=== PATIENT | male | born 1970 | race Caucasian/White ===

== ENCOUNTER 2017-11-23 09:03 | Outpatient (REF) | payer MEDICAID, SELFPAY ==
[2017-11-23 20:42] LABS: ALT 47 U/L (12-78); AST 21 U/L (15-37); Albumin 3.8 g/dL (3.4-5.0); Alkaline Phosphatase 73 U/L (46-116); Bilirubin, Total 0.3 mg/dL (0.2-1.0); Cholesterol 225 mg/dL (50-200); HDL Cholesterol 44 mg/dL (40-60); LDL CHOLESTEROL 165 mg/dL (<100); Total Protein 6.7 g/dL (6.4-8.2); Triglyceride 117 mg/dL (30-150)
[2017-11-23 21:14] LABS: Bilirubin, Direct 0.08 mg/dL (0.00-0.20)
== END 2017-11-23 09:23 ==
LOC: NCHCN 09:03
PROVIDERS: PCP Nurse Practitioner Family; Visit Provider Physician Assistant Medical
DX: E78.5 Hyperlipidemia, unspecified (principal)
CPT/HCPCS: 80061; 80076; 83721

== ENCOUNTER 2017-12-12 18:06 | Outpatient (REF) | payer MEDICAID, SELFPAY ==
[2017-12-12 20:34] LABS: ALT 65 U/L (12-78); AST 29 U/L (15-37); Albumin 3.7 g/dL (3.4-5.0); Alkaline Phosphatase 75 U/L (46-116); Anion Gap 10.6 mmol/L (3-11); BUN 11 mg/dL (7-18); Bilirubin, Total 0.3 mg/dL (0.2-1.0); CO2 25.4 mmol/L (21.0-32.0); Chloride 103 mmol/L (98-107); Creatine Kinase 147 U/L (39-308); Glucose 95 mg/dL (70-100); Potassium 4.4 mmol/L (3.5-5.1); Sodium 139 mmol/L (136-145); Total Protein 6.5 g/dL (6.4-8.2)
== END 2017-12-12 18:26 ==
LOC: NCHCN 18:06
PROVIDERS: PCP Nurse Practitioner Family; Visit Provider Specialist/Technologist Athletic Trainer
DX: Z02.89 Encounter for other administrative examinations (principal)
CPT/HCPCS: 80053; 82550

== ENCOUNTER 2018-10-25 08:11 | Emergency (ER) | payer SELFPAY ==
[2018-10-25 08:18] VITALS: BP 140/100; PULSE 95; RESP 16; TEMP 36.7; O2SAT 96
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
[2018-10-25] MEDS: Acetaminophen 500 MG TAB 1000 MG PO (08:29)
[2018-10-25 10:27] VITALS: BP 138/99; PULSE 85; RESP 16; TEMP 36.7; O2SAT 96
[2018-10-25] MEDS: Tetanus & Diphtheria Tox,ADULT 0.5 ML VIAL IM (10:28)
== END 2018-10-25 10:27 | disposition home or self-care (01) ==
PROVIDERS: Emergency Provider Nurse Practitioner Family; PCP Physician Assistant Medical
DX: S09.90XA Unspecified injury of head, initial encounter (principal); S01.81XA Laceration without foreign body of other part of head, initial encounter; S00.03XA Contusion of scalp, initial encounter; Y08.09XA Assault by strike by other specified type of sport equipment, initial encounter
CPT/HCPCS: 12013; 90471; 99284; 70450; 99281

== ENCOUNTER 2018-11-01 11:14 | Emergency (ER) | payer SELFPAY ==
[2018-11-01 11:21] VITALS: BP 153/90; PULSE 62; RESP 16; TEMP 36.7; O2SAT 96
--- NOTE | 2018-11-01 11:33 | ED.GENADUL_ITS ---
Discharge Plan Disposition Patient Disposition: HOME Condition: Stable Discharge Details Chief Complaint: SutureRem Clinical Impression: Encounter for removal of sutures Primary Care Provider: Javier Nath ED Provider: Fortino Feliz Home Meds and New Rx's Prescriptions: Continued pantoprazole [Protonix] 40 mg Tablet,Delayed Release (Dr/Ec) 20 mg PO DAILY RF: 0 Discharge Instructions Instructions: Stitches Removal (ED) Medical Decision Making pt here for suture removal after having sutures placed on forehead. Denies discharge or pain. Has very mild erythema surrounding the wound that appears to be healing and not infectious, no evidence of cellulitis and wound appears well healed. Will have nursing remove and return precautions given Differential Diagnosis suture removal, abrasion HPI General Mode of arrival: ambulatory . Date/Time Provider Initiated Documentation: 11/01/18 11:32 . Limitations to Documentation: no limitations . Information obtained by: patient . History of Present Illness 48 year old M presents to the emergency department with the chief complaint of forehead suture removal, described as mild, No relieving factors improve symptom(s), No exacerbating factors reported . Patient notes no other symptoms.. Related Data Home Medications Medication Instructions Recorded Confirmed pantoprazole [Protonix] 20 mg PO DAILY 10/25/18 10/25/18 Allergies Allergy/AdvReac Type Severity Reaction Status Date / Time No Known Allergies Allergy Unverified 10/25/18 08:24 General Stated Complaint: SutureRem KODY: 5 Review of Systems Review of Systems All systems reviewed & are unremarkable except as noted in HPI and below Constitutional Denies chills, Denies fever(s) and Denies weakness Cardiovascular Denies chest pain and Denies dyspnea Respiratory Denies cough and Denies dyspnea Gastrointestinal Denies abdominal pain, Denies nausea and Denies vomiting Genitourinary Denies dysuria Musculoskeletal Denies joint swelling Integumentary/Breasts Denies rash Neurologic Denies weakness [facility] Medical History (Updated 10/25/18 @ 08:27 by Tha Castellanos NP) GERD (gastroesophageal reflux disease) (Chronic) Social History Smoking/Tobacco Use Status: Never Substance use type: does not use Do you feel safe at home: Yes Do you feel safe in your relationship?: Yes Exam Const General: no acute distress Orientation: alert HENND Head: no palpable skull fracture Ears: external ears normal General nose exam: external nose normal Mouth: moist mucous membranes Eyes General: appearance normal, both eyes and all related structures Neck Neck: normal visual inspection Resp Effort & Inspection: normal respiratory effort and able to speak in complete sentences Cardio Rate: regular rate Skin General skin exam: no rashes or lesions noted Neuro General: alert and oriented x3 Extrem General: normal to inspection Psych Mental Status: mental status grossly normal Course Vital Signs Temperature 36.7 C 11/01/18 11:21 Pulse 62 11/01/18 11:21 Respiratory Rate 16 11/01/18 11:21 Blood Pressure 153/90 H 11/01/18 11:21 Pulse Oximetry 96 11/01/18 11:21 Temperature 36.7 C 11/01/18 11:21 Temperature Source Skin 11/01/18 11:21 Pulse 62 11/01/18 11:21 Respiratory Rate 16 11/01/18 11:21 Blood Pressure 153/90 H 11/01/18 11:21 Blood Pressure Position Sitting 11/01/18 11:21 Pulse Oximetry 96 11/01/18 11:21 Oxygen Delivery Method Room Air 11/01/18 11:21 Oxygen Flow Rate 0 11/01/18 11:21
== END 2018-11-01 11:55 | disposition home or self-care (01) ==
PROVIDERS: Emergency Provider Emergency Medicine; PCP Physician Assistant Medical
DX: S01.81XD Laceration without foreign body of other part of head, subsequent encounter (principal); Y08.09XD Assault by strike by other specified type of sport equipment, subsequent encounter; Z48.02 Encounter for removal of sutures

== ENCOUNTER 2019-03-18 09:28 | Outpatient (REF) | payer OTHER, SELFPAY ==
[2019-03-18 23:09] LABS: Anion Gap 10.5 mmol/L (3-11); BUN 10 mg/dL (7-18); CO2 26.5 mmol/L (21.0-32.0); CREATININE 0.96 mg/dL (0.70-1.30); Calculated LDL 183 mg/dL; Chloride 103 mmol/L (98-107); Cholesterol 245 mg/dL (<200); Glucose 93 mg/dL (74-106); HDL Cholesterol 33 mg/dL (40-60); Potassium 4.3 mmol/L (3.5-5.1); Sodium 140 mmol/L (136-145); TSH 1.05 uIU/mL (0.36-3.74); Triglyceride 145 mg/dL (<150)
== END 2019-03-18 09:48 ==
LOC: NCHCN 09:28
PROVIDERS: PCP Nurse Practitioner Family; Visit Provider Nurse Practitioner Family
DX: R06.02 Shortness of breath (principal); R07.89 Other chest pain
CPT/HCPCS: 80048; 80061; 84443

== ENCOUNTER 2019-03-19 00:37 | Outpatient (CLI) | payer OTHER, SELFPAY ==
--- NOTE | 2019-03-19 14:10 | ETT_ITS ---
APPROVED REPORT Exam: Exercise Treadmill Patient Location: Out-Patient Room/Bed: Stress Nurse: Cynthia Jimenez RN BMI: 37.65 Baseline Rhythm: Sinus Rhythm Indications: Patient reports he has been having intermittent ???sharp or dull??? lower left chest and anterior mid clavicular chest pain, SOB and dizziness with rest and with activity over the last year . Medical History Medical History: GERD Cardiac Medications: None, Allergies: No known drug allergies Cardiac Risk Factors: FHX of CAD, Hyperlipidemia Previous Cardiac Procedures: None Pretest Chest Pain Characteristics: No chest pain Exercise History: Physically active Physical Disabilities: None Lung Sounds: Clear to auscultation Heart Sounds: Regular Stress Test Details Test: Exercise stress testing was performed using a Oscar protocol. Rest Stress HR Max Heart Rate (APMHR): 171 bpm Resting HR Supine: 61 bpm Target HR (85% APMHR): 145 bpm Resting HR Standin bpm Max HR Achieved: 160 bpm % of APMHR: 93 HR response to stress: Normal HR response to stress BP Resting BP Supine: 130/86 mmHg Resting BP Standin/90 mmHg Max BP: 194/90 mmHg BP response to stress: Normal blood pressure response to stress. ECG Resting ECG: Sinus Rhythm ST Change: Normal Ectopy: none Stress ECG: Sinus Tachycardia ST Change: Normal Arrhythmia: None Recovery ECG: Sinus Rhythm Recovery ST Change: Normal Recovery Arrhythmia: None Clinical Reason for Termination: Fatigue Stress Symptoms: Brief Midsternal chest pain at maximal exercise Exercise duration: 8 min42 sec Highest Stage Achieved: Stage 3: 3.4 mph at 14% grade. Exercise capacity: 10.16 METs Functional Capacity: Average Capacity Stress ECG Conclusion 1. Patient exercised for 8 minutes 42 seconds (10 METS) 2. The test was stopped due to fatigue. Rate-pressure product was 30,000 3. There was no evidence of ischemia on the ECG portion of this exam. 4. The Chavez Score (8) estimates an annual cardiovascular mortality of 0% and a five year survival of 95%. Using the Chavez Score there is a low probability of any angiographic coronary disease. Protocol Used: Oscar Protocol Stress Test Summary STAGE Time (mins) Speed (mph) Grade (%) HR BP SYMPTOMS METS Supine 61 130/86 Standing 68 128/90 1 3 1.7 10 111 148/90 4.6 2 6 2.5 12 132 160/92 7 3 9 3.4 14 156 194/90 10.2 4 12 4.2 16 12.9 5 15 5.0 18 17.2 1 min recovery 133 198/60 3 min recovery 105 182/80 6 min recovery 95 150/84 9 min recovery 110 130/90 Patient having coughing spell
== END 2019-03-19 00:57 ==
PROVIDERS: PCP Nurse Practitioner Family; Visit Provider Nurse Practitioner Family
DX: R07.9 Chest pain, unspecified (principal); R06.02 Shortness of breath; R42 Dizziness and giddiness; E78.5 Hyperlipidemia, unspecified; K21.9 Gastro-esophageal reflux disease without esophagitis; Z82.49 Family history of ischemic heart disease and other diseases of the circulatory system
CPT/HCPCS: 93017

== ENCOUNTER 2021-03-17 16:15 | Outpatient (REF) | payer OTHER, SELFPAY ==
[2021-03-17 14:06] LABS: ESR 15 mm/hr (0-20)
[2021-03-17 14:26] LABS: Hemoglobin A1C 5.5 % (<5.7)
[2021-03-17 14:27] LABS: Calculated LDL 168 mg/dL (<100); Cholesterol 235 mg/dL (<200); HDL Cholesterol 36 mg/dL (40-60); Triglyceride 157 mg/dL (<150)
[2021-03-17 21:58] LABS: Rheumatoid Factor <8.6 IU/mL (<12.0)
[2021-03-18 09:24] LABS: Cyclic Citrullinated Peptide <2.5 U/mL (<5.0)
[2021-03-18 11:28] LABS: Lyme Ab w Rflx to Lyme Confirm Negative (Negative)
[2021-03-18 15:13] LABS: ANA Interpretation Negative (Negative)
== END 2021-03-17 16:16 | disposition home or self-care (01) ==
LOC: NCHCN 16:15
PROVIDERS: PCP Nurse Practitioner Family; Visit Provider Nurse Practitioner Family
DX: Z00.00 Encounter for general adult medical examination without abnormal findings (principal); E78.5 Hyperlipidemia, unspecified; L40.9 Psoriasis, unspecified; M25.50 Pain in unspecified joint
CPT/HCPCS: 80061; 85652; 86200; 83036; 86038; 86140; 86431; 86618

== ENCOUNTER 2022-03-21 12:51 | Outpatient (REF) | payer OTHER, SELFPAY ==
[2022-03-21 17:19] LABS: Calculated LDL 165 mg/dL (<100); Cholesterol 231 mg/dL (<200); Glucose 103 mg/dL (74-106); HDL Cholesterol 43 mg/dL (40-60); Triglyceride 118 mg/dL (<150)
== END 2022-03-21 12:52 | disposition home or self-care (01) ==
LOC: NCHCN 12:51
PROVIDERS: PCP Nurse Practitioner Family; Visit Provider Nurse Practitioner Family
DX: Z00.00 Encounter for general adult medical examination without abnormal findings (principal)
CPT/HCPCS: 80061; 82947

== ENCOUNTER → 2022-10-19 01:35 | Outpatient (CLI) | payer OTHER, SELFPAY ==
--- NOTE | 2022-10-19 08:35 | DI.RAD_ITS ---
Exam(s) XR LUMBAR SPINE COMPLETE EXAM: XR LUMBAR SPINE COMPLETE CLINICAL HISTORY: BACK PAIN, M54.9. TECHNIQUE: 2D digital imaging was performed. Five views. COMPARISON: CR LUMBAR SPINE COMPLETE from 05/30/2012 MR MRI - LUMBAR SPINE WO CONTRAST from 12/09/2013 FINDINGS: BONES: No fracture or destructive lesion. Vertebral body heights are maintained. Small endplate oste ophytes. Mild facet hypertrophy identified. DISKS: Intervertebral disc spaces are maintained. ALIGNMENT: Lumbar spinal alignment is within normal limits. SOFT TISSUE: Normal. IMPRESSION: Mild degenerative changes. DATA REPOSITORY: RADIATION DOSE DELIVERED:
== END ==
PROVIDERS: PCP Nurse Practitioner Family; Visit Provider Nurse Practitioner Family
DX: M54.9 Dorsalgia, unspecified (principal)
CPT/HCPCS: 72110

== ENCOUNTER 2023-10-23 19:54 | Outpatient (REF) | payer OTHER, SELFPAY ==
--- OUTSIDE RECORDS SUMMARY | 2023-10-23 20:03 | XMS_ITS | Referral Summary ---
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
--- OUTSIDE RECORDS SUMMARY | 2023-10-23 20:03 | XMS_ITS | Clinical Summary ---
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 Name Role Phone Unknown, Provider Primary Care Provider [phone] Social History Tobacco Use Types Packs/Day Years Used Date Smoking Tobacco: Never Assessed Sex and Gender Information Value Date Recorded Sex Assigned at Not on file Gender Identity Not on file Sexual Orientation Not on file Plan of Treatment Health Maintenance Due Date Last Done Comments Hepatitis C Screen 1970 Hepatitis B Vaccine (1 of 3 - 19+ 3-dose series) 06/18 COVID-19 Vaccine ( - 2022-24 season) 2022 Care Teams [employer] Architect Relationship Specialty Start Date End Date Unknown, Provider, PCP - General 03/21/16
--- OUTSIDE RECORDS SUMMARY | 2023-10-23 20:03 | XMS_ITS | Continuity of Care Document ---
Author Organization [facility], [facility] Address [address] [place] [address] Care Team Providers Care Manufacturing Engineering Technologist Name Role Phone VERONICA HUBBARD Dentist SIERRA SPICER Primary Care Provider [facility] Orthopedist [facility] Painter And Paperhanger Apprentice [phone] Assessment No assessment recorded. Plan of Treatment Reminders Order Date Submit Date Provider Last Modified By Organization Details Last Modified Time Details Appointments Office Visit 40 2023 07:30A M Not available Not available Not available [facility] ss Exam 40 2024 07:30A M Not available Not available Not available Lab HbA1c (hemog lobin A1c), blood 2023 024 [facility] (Registration ), [address] [place] [address] [place], [address], 10/23/2023 09:57:04 CMP, serum or plasma 2023 024 [facility] (Registration ), [address] [place] [address] [place], [address], 10/23/2023 09:57:04 magnes ium, serum or plasma 2023 024 [facility] (Registration ), [address] [place] [address] [place], [address], 10/23/2023 09:57:04 lipid panel, serum 2023 024 [facility] (Registration ), [address] [place] [address] [place], [address], 10/23/2023 09:57:04 Referral None record ed. Procedures None record ed. Surgeries None record ed. Imaging None record ed. Medication Orders None record ed. Patient TargetsNo targets recorded. Patient InstructionsNo instructions recorded. Reason for Referral None Reported. 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 Problem Code: K21.9; Problem Code Type: ICD-10; Not Available [facility] 3 05:27:56 Psoriasis Active 200803/21/2022 - Comments only - Tone Page [employer]OM[employer]BI[employer] TE[employer] - Mild symptoms; left elbow, Both hands treated with Westcort cream and managed withDiet. Problem Code: L40.9; Problem Code Type: ICD-10; Not Available [facility] 3 05:27:56 Chronic tonsillitis Active 2012 Problem Code: 474.00; Problem Code Type: ICD-9; Not Available [facility] 3 05:27:56 Pain in thoracic spine Active 2008 Problem Code: M54.9; Problem Code Type: ICD-10; Not Available [facility] 3 05:27:56 Adult health examination Active 201503/21/2022 - Comments only - Tone Page [employer] TE[employer] - Fasting lipids and fasting glucose drawn today. Advanced directives discussed. Problem Code: Z00.00; Problem Code Type: ICD-10; Not Available [facility] 3 05:27:57 Obesity Active 201503/21/2022 - Comments only - Tone Page [employer] TE[employer] - Patient restarting walking program plans to walk 30 minutes most days of the week, making dietary changes adding more fruits and vegetables. Problem Code: E66.9; Problem Code Type: ICD-10; Not Available [facility] 3 05:27:57 Disorder of patellofemoral joint Active 2015 Problem Code: M22.2x9; Problem Code Type: ICD-10; Not Available [facility] 3 05:27:57 Family history of polyp of colon Active 2015 Problem Code: Z83.71; Problem Code Type: ICD-10; Not Available [facility] 3 05:27:57 Hyperlipidemia Active 2016 Problem Code: E78.5; Problem Code Type: ICD-10; Not Available [facility] 3 05:27:57 Bronchitis Completed 201711/03/2017 Problem Code: J40; Problem Code Type: ICD-10; Not Available [facility] 3 05:27:57 Bursitis of left knee Active 2019 comes and goes SIERRA SEWELL, PHARMACIST- [address], [place], [address] , [facility] 4 07:57:52 Shoulder joint pain Active 202103/21/2022 - Comments only - 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 Problem Code: M25.519; Problem Code Type: ICD-10; Not Available [facility] 3 05:27:58 Abnormal weight gain Completed 201609/30/2019 Problem Code: R63.5; Problem Code Type: ICD-10; Not Available [facility] 3 05:28:16 Dyspnea Completed 201904/02/2019 Problem Code: R06.02; Problem Code Type: ICD-10; Not Available [facility] 3 05:28:17 Gastroesophage al reflux disease Completed 200311/30/2022 Not Available [facility] 3 05:28:17 Joint pain Completed 202103/21/2022 Problem Code: M25.50; Problem Code Type: ICD-10; Not Available [facility] 3 05:28:19 Pain in right foot Completed 201612/18/2017 Problem Code: M79.671; Problem Code Type: ICD-10; Not Available [facility] 3 05:28:21 Elevated blood-pressure reading without diagnosis of hypertension Completed 201709/30/2019 Problem Code: R03.0; Problem Code Type: ICD-10; Not Available [facility] 3 05:28:21 Shoulder joint pain Completed 201403/21/2022 Problem Code: M25.519; Problem Code Type: ICD-10; Not Available [facility] 3 05:28:21 Cough Completed 202103/21/2022 Problem Code: R05.8; Problem Code Type: ICD-10; Not Available [facility] 3 05:28:21 Dizziness and giddiness Completed 201609/30/2019 Problem Code: R42; Problem Code Type: ICD-10; Not Available [facility] 3 05:28:23 Chest pain Completed 201909/30/2019 Problem Code: R07.89; Problem Code Type: ICD-10; Not Available [facility] 3 05:28:23 History and physical examination, administrative Completed 201709/30/2019 Problem Code: Z02.89; Problem Code Type: ICD-10; Not Available [facility] 3 05:28:23 Hypertrophic condition of skin Completed 201403/21/2022 Problem Code: L91.8; Problem Code Type: ICD-10; Not Available [facility] 3 05:28:24 Tremor Completed 202103/21/2022 Problem Code: R25.1; Problem Code Type: ICD-10; Not Available [facility] 3 05:28:25 Backache Completed 200811/30/2022 Not Available [facility] 3 05:28:26 Low back pain Active 2023 SIERRA SEWELL, PHARMACIST-BC [address], [place], [address] , [facility]. 4 08:01:25 Hearing problem Active 2023 Difficulty hearing certain frequencies only SIERRA SEWELL [facility] [address], [place], [address] , [facility] 08:46:24 Problem Notes None recorded. Procedures Surgical History Date Name Laterality Status Provider Name and Address Organization Details Recorded Time reconstruction of anterior cruciate ligament of knee joint completed EBONIE [address], [facility] [address], [facility] 10/22/2023 21:57:51 procedure on finger completed DELMIS A LINDA Dumont [facility] [address], [place] [address], [facility] 10/22/2023 21:58:48 procedure on tibia completed SIERRA Dumont [address], [facility] [address], [facility] 10/22/2023 21:59:35 excision of neoplasm completed [facility] [address], [facility] [address], [facility] 10/22/2023 22:00:37 Imaging Results None recorded. Procedure Notes None recorded. Medical Equipment None Reported. Allergies Allergen ID Allergen Name Allergen Category Reaction Reaction Severity Criticality Documentation Date Start Date Code Code System Note Provider Name and Address Organization Details Recorded Time 86953 Celebrex medicatio n headache moderate low 04/14/20232023 97853 7 RxNorm Barry William MA null, [facility] 09:05:50 32056 Prevacid medicatio n dizziness moderate unabletoasse ss 10/22/2023 96729 RxNorm lanso prazo le SIERRA GALEANO [facility] [address], [place], [address], [facility] 4 21:50:39 Medications Name Sig Start Date Stop Date Status Note LastModified by Organization Details LastModified Time Augmentin 875 mg-125 mg tablet Take 1 tablet every 12 hours by oral route with meal(s) for 7 days, for ear infectio n. 10/21 completed Not Available Not Available Not Available Protonix 40 mg tablet,de layed release 1 TAB QD 2012 active Not Available Not Available Not Avai lable azithromy andrew 250 mg tablet Take 2 by mouth now, then take 1 by mouth daily x 4 days 10/07 completed Not Available Not Available Not Available ibuprofen 800 mg tablet Take 1 tablet by mouth every 8 hours with food 2023 active Not Available Not Available Not Avai lable Medrol (Alejandro) 4 mg tablets in a dose pack Take 1 tablet by mouth as directed jesus garcia package instruct ions, take with food 03/21 completed Not Available Not Available Not Available prednison e 20 mg tablet Take two tabs PO daily for 5 days 12/12 completed Not Available Not Available Not Available simvastat in 10 mg tablet Take 1 tab by mouth daily at bedtime 03/11 completed Not Available Not Available Not Available Westcort 0.2 % topical ointment apply daily to psoriati c patches. 2014 active Not Available Not Available Not Avai lable amoxicill in 500 mg tablet Take one tab by mouth three times a day 12/01 completed Dental prescrip tion Not Available Not Available Not Available ketorolac 10 mg tablet Take 1 tablet by mouth every six hours as needed use instead of ibuprofe n, take with food. 10/17 completed Not Available Not Available Not Available pantopraz ole 20 mg tablet,de layed release TAKE ONE TABLET BY MOUTH EVERY DAY active Not Available Not Available No t Available Celebrex 200 mg capsule Take 1 capsule by mouth twice a day as needed for pain hold Ibuprofe n while taking Celebrex 10/12 completed [facility]. Not Available Not Available Not Available meloxicam 7.5 mg tablet TAKE ONE TABLET BY MOUTH TWICE A DAY NEEDED FOR PAIN TAKE WITH FOOD 06/25 completed Not Available Not Available Not Available Guaiatuss in AC 10 mg-100 mg/5 mL oral liquid Take 1-2 tsp by mouth every six hours as needed for cough 12/12 completed Not Available Not Available Not Available Topicort LP 0.05 % topical cream cream BID 09/09 completed Not Available Not Available Not Available betametha sone, augmented 0.05 % topical ointment apply to chest, head, legs, face. 10/02 completed Not Available Not Available Not Available diclofena c sodium 75 mg tablet,de layed release Take 1 tablet by mouth twice daily. for arthriti c pain 03/11 completed Not Available Not Available Not Available fluticaso ne propionat e 50 mcg/actua tion nasal spray,aide pension [employer]ette 2 spray into both nostrils once a day 2021 active Not Available Not Available Not Avai lable [place]-Smo othe/FS Scalp Oil 0.01 % apply QHS 12/07 completed Not Available Not Available Not Available Guaifenes in-Codein e 5ML every six hours 05/03 completed Not Available Not Available Not Available NAC 600 mg capsule Take 1 tablet by mouth twice a day 03/08 completed Not Available Not Available Not Available Vitals Date Recorded Body height Body mass index (BMI) Body weight Heart rate Systolic blood pressure Diastolic blood pressure Provider Name and Address Organization Details Last Updated DateTime 4 179.451 cm 39.9 kg/m2 685880. 64 g 59 /min 142 mm[Hg] 89 mm[Hg] Yuli fleming LPN [facility] 4 07:25:09 Social History Question Answer Notes LastModified by Organizat ion Details LastModified Time Tobacco Smoking Status Former Smoker Yuli Porter LPN [facility] 10/22/2023 19:43:10 When Did You Quit Smoking? 6-10yearssin celastcigare tte maria l Information not available 10/23/2023 What Was The Date Of Your Most Recent Tobacco Screening? 10/23/2023 [email or web address] Information not available 10/22/2023 What Is Your Current Pack Years? 30ormorepack years [email or web address] Information not available 10/23/2023 How Much Tobacco Do You Smoke? No [email or web address] Information not available 10/23/2023 Has Tobacco Cessation Counseling Been Provided? Yes [email or web address] Information not available 10/22/2023 On What Date Was Tobacco Cessation Counseling Provided? 10/23/2023 [email or web address] Information not available 10/22/2023 Sex: Male Functional Status None recorded. Mental Status None recorded. Family History Relationship Description Onset Age of this Age Resolved Age Notes Mother Intracranial aneurysm 65 Mother Malignant tumor of cervix Brother Cerebrovascular accident 64 and COVID Brother Malignant neoplastic disease ?type Brother Myocardial infarction 54 at age 54 Sister Heart failure 58 at age 58 Father Malignant neoplastic disease 72 ?type Unspecified Relation Hypertensive disorder Unspecified Relation Alcohol abuse Unspecified Relation Attention deficit hyperactivity disorder Unspecified Relation Rectal polyp Medical History No medical history recorded. Immunizations Vaccine Type Date Status Provider Name and Address Organization Details Recorded Time Tdap 07/25/2008 completed Not Available [facility] 06:05:01 Td(adult) unspecified formulation 10/25/2018 completed Not Available [facility] 01/13/2023 06:05:01 zoster recombinant 03/17/2021 completed Not Available [facility] 01/13/2023 06:05:01 zoster recombinant 09/30/2019 completed Not Available [facility] 01/13/2023 06:05:01 influenza, unspecified formulation 01/05/2009 completed Not Available [facility] 01/13/2023 06:05:01 influenza, unspecified formulation 02/08/2006 completed Not Available [facility] 01/13/2023 06:05:02 influenza, unspecified formulation 02/20/2008 completed Not Available [facility] 01/13/2023 06:05:02 Past Encounters Encounter ID Performer Location Encounter Start Date Encounter Closed Date Diagnosis/Indication Diagnosis SNOMED-CT Code [id number] SIERRA BOOTH, [address] [address] 10/23/2023 07:15:58 10/23/2023 08:15:37 Adult health examination 547608258 Gastroesop hageal reflux disease without esophagitis 555432974 Hyperlipidemia 08262172 Shoulder joint pain 3389 97252 Obesity 201586020 Low back pain 756953498 Hearing problem 40177366 4 Health Concerns Section Related Observation LastModified by Organization Detai ls LastModified Time None Recorded Concern Status LastModified by Organization Details LastModified Time None Recorded Payers Encounter Date Sequence Insurance Name Policy Number Policy Verduzco Covered Member ID Verduz[employer] Member ID Guarantor Name 10/23/2023 1 [facility] [place] [place] [id number] Kai Mittal [id number] Kai Mittal Notes Date Note Type Note Provider Name and Address Organization Details Recorded Time 10/23/2023 text/html HPI Notes: Transfer of care from TONE Shah APRN, here to check in, get med refills, discuss hearing issues, low back pain. Overdue for AWE. lipids 03/21/2022: homyx=496, HDL=43. GPS=232, RR=344, CV10 = 11.6% last A1c 03/17/2021 = 5.5 TSH normal 03/18/2019 BMP [email or web address] No Mg SIERRA SPICER, PHARMACIST- [address], [place], [address], [facility]. 10/23/2023 08:54:59
--- OUTSIDE RECORDS SUMMARY | 2023-10-23 20:03 | XMS_ITS | Data Portability ---
Author Organization [place] - [facility] [place] [address] Care Team Providers Care Director Digital Catalogue Name Role Phone VERONICA HUBBARD Dentist SIERRA SPICER Primary Care Provider [facility] Orthopedist [facility] Element Setter Assessment No assessment recorded. Plan of Treatment Reminders Order Date Submit Date Provider Last Modified By Organization Details Last Modified Time Details Appointments Office Visit 40 2023 07:30A M Not available Not available Not available Annual [facility] ss Exam 40 2024 07:30A M Not available Not available Not available Lab HbA1c (hemog lobin A1c), blood 2023 024 [facility] (Registration ), [address] [place] [address] [place], [address], 10/23/2023 09:57:04 CMP, serum or plasma 2023 024 [facility] (Registration ), [address] [place] [address] [place], [address], 10/23/2023 09:57:04 magnes ium, serum or plasma 2023 024 [facility] (Registration ), [address] [place] [address] [place], [address], 10/23/2023 09:57:04 lipid panel, serum 2023 024 [facility] (Registration ), [address] [place] [address] Dr, [place], [address], 10/23/2023 09:57:04 Referral None record ed. Procedures None record ed. Surgeries None record ed. Imaging None record ed. Medication Orders Florence tin 875 mg-125 mg tablet 2023 04 024 [id number], [address] [facility], [place], [address], 10/22/2023 19:39:19 Patient TargetsNo targets recorded. Patient Instructions Encounter Date Encounter Id Patient Instructions Last Modified By Organization Details Last Modified Time 06/26/2023 [id number] Kai: start antibiotic for your ear infection. If your symptoms persist call [facility] for an update BP is fine today rechecked 132/78 [email or web address] Not available 06/26/2023 11:00:30 Reason for Referral None Reported. Problems Name Status Onset Date Resolution Date Notes Provider Name and Address Organization Details Recorded Time Gastroesophage al reflux disease without esophagitis Active 200303/21/2022 - Comments only - Tone Evangelista CADD INSTRUCTOR - Protonix managing symptoms. Problem Code: K21.9; Problem Code Type: ICD-10; Not Available [facility] 3 05:27:56 Psoriasis Active 200803/21/2022 - Comments only - Tone Evangelista CADD INSTRUCTOR - Mild symptoms; left elbow, Both hands treated with Westcort cream and managed withDiet. Problem Code: L40.9; Problem Code Type: ICD-10; Not Available [facility] 3 05:27:56 Chronic tonsillitis Active 2012 Problem Code: 474.00; Problem Code Type: ICD-9; Not Available [facility] 3 05:27:56 Pain in thoracic spine Active 2008 Problem Code: M54.9; Problem Code Type: ICD-10; Not Available [facility] 3 05:27:56 Adult health examination Active 201503/21/2022 - Comments only - Tone Evangelista CADD INSTRUCTOR - Fasting lipids and fasting glucose drawn today. Advanced directives discussed. Problem Code: Z00.00; Problem Code Type: ICD-10; Not Available [facility] 3 05:27:57 Obesity Active 201503/21/2022 - Comments only - Tone Evangelista CADD INSTRUCTOR - Patient restarting walking program plans to walk 30 minutes most days of the week, making dietary changes adding more fruits and vegetables. Problem Code: E66.9; Problem Code Type: ICD-10; Not Available [facility] 3 05:27:57 Disorder of patellofemoral joint Active 2015 Problem Code: M22.2x9; Problem Code Type: ICD-10; Not Available [facility] 3 05:27:57 Family history of polyp of colon Active 2015 Problem Code: Z83.71; Problem Code Type: ICD-10; Not Available [facility] 3 05:27:57 Hyperlipidemia Active 2016 Problem Code: E78.5; Problem Code Type: ICD-10; Not Available [facility] 3 05:27:57 Bronchitis Completed 201711/03/2017 Problem Code: J40; Problem Code Type: ICD-10; Not Available [facility] 3 05:27:57 Bursitis of left knee Active 2019 comes and goes SIERRA SEWELL, CONCRETE SCULPTOR- [address], [place], [address] , [facility] 4 07:57:52 Shoulder joint pain Active 202103/21/2022 - Comments only - Tone Evangelista CADD INSTRUCTOR - 03/2022 [facility] status Celebrex 200 mg twice daily, with marked improvement in left shoulder symptoms. Problem Code: M25.519; Problem Code Type: ICD-10; Not Available [facility] 3 05:27:58 Abnormal weight gain Completed 201609/30/2019 Problem Code: R63.5; Problem Code Type: ICD-10; Not Available [facility] 3 05:28:16 Dyspnea Completed 201904/02/2019 Problem Code: R06.02; Problem Code Type: ICD-10; Not Available [facility] 3 05:28:17 Gastroesophage al reflux disease Completed 200311/30/2022 Not Available [facility] 3 05:28:17 Joint pain Completed 202103/21/2022 Problem Code: M25.50; Problem Code Type: ICD-10; Not Available [facility] 3 05:28:19 Pain in right foot Completed 201612/18/2017 Problem Code: M79.671; Problem Code Type: ICD-10; Not Available [facility] 3 05:28:21 Elevated blood-pressure reading without diagnosis of hypertension Completed 201709/30/2019 Problem Code: R03.0; Problem Code Type: ICD-10; Not Available [facility] 3 05:28:21 Shoulder joint pain Completed 201403/21/2022 Problem Code: M25.519; Problem Code Type: ICD-10; Not Available [facility] 3 05:28:21 Cough Completed 202103/21/2022 Problem Code: R05.8; Problem Code Type: ICD-10; Not Available [facility] 3 05:28:21 Dizziness and giddiness Completed 201609/30/2019 Problem Code: R42; Problem Code Type: ICD-10; Not Available [facility] 3 05:28:23 Chest pain Completed 201909/30/2019 Problem Code: R07.89; Problem Code Type: ICD-10; Not Available [facility] 3 05:28:23 History and physical examination, administrative Completed 201709/30/2019 Problem Code: Z02.89; Problem Code Type: ICD-10; Not Available [facility] 3 05:28:23 Hypertrophic condition of skin Completed 201403/21/2022 Problem Code: L91.8; Problem Code Type: ICD-10; Not Available [facility] 3 05:28:24 Tremor Completed 202103/21/2022 Problem Code: R25.1; Problem Code Type: ICD-10; Not Available [facility] 3 05:28:25 Backache Completed 200811/30/2022 Not Available [facility] 3 05:28:26 Low back pain Active [address], [facility] [address] , [facility] 4 08:01:25 Hearing problem Active 2023 Difficulty hearing certain frequencies only [address], [facility] [address] , [facility] 4 08:46:24 Problem Notes None recorded. Procedures Surgical History Date Name Laterality Status Provider Name and Address Organization Details Recorded Time reconstruction of anterior cruciate ligament of knee joint completed EBONIE [address], [facility] [address], [facility] 10/22/2023 21:57:51 procedure on finger completed GABRIELAANN [address]ONIE [address], [facility] [address], [facility] 10/22/2023 21:58:48 procedure on tibia completed EBONIE [address], [facility] [address], [facility] 10/22/2023 21:59:35 excision of neoplasm completed EBONIE [address], [facility] [address], [facility] 10/22/2023 22:00:37 Imaging Results None recorded. Procedure Notes None recorded. Medical Equipment None Reported. Allergies Allergen ID Allergen Name Allergen Category Reaction Reaction Severity Criticality Documentation Date Start Date Code Code System Note Provider Name and Address Organization Details Recorded Time 52286 Celebrex medicatio n headache moderate low 04/14/20232023 69767 7 RxNorm Barry William MA null, [place] - [facility], [facility]. 4 09:05:50 63431 Prevacid medicatio n dizziness moderate unabletoasse ss 10/22/2023 06508 RxNorm lanso mariluo yair HARGROVELEILA GALEANO, [facility]- [address], [place], [address] , [facility], [facility] 4 21:50:39 Medications Name Sig Start [...] Take 1 tablet by mouth as directed followin g package instruct ions, take with food 03/21 [...] Ibuprofe n while taking Celebrex 10/12 completed [facility]. Not Available Not Available Not Available [...] e 50 mcg/actua tion nasal spray,aide pension Muse 2 spray into both nostrils once a day 2021 active Not Available Not Available Not Avai lable [place] [address]-Smo othe/FS Scalp Oil 0.01 % apply QHS [...] Details Last Updated DateTime 4 179.451 cm 40.6 kg/m2 844663. 7 g 76 /min 148 mm[Hg] 100 mm[Hg] SAAD HILLMAN LPN [facility] 4 10:11:30 Date Recorded Body height Body mass index (BMI) Body weight Heart rate Systolic blood pressure Diastolic blood pressure Provider Name and Address Organization Details Last Updated DateTime 4 179.451 cm 39.9 kg/m2 278684. 64 g 59 /min 142 mm[Hg] 89 mm[Hg] Yuli fleming LPN [facility] 4 07:25:09 Social History Question Answer Notes LastModified by Organizat ion Details LastModified Time Tobacco Smoking Status Former Smoker TIMO Vo, [facility] 10/22/2023 19:43:10 When Did You Quit Smoking? 6-10yearssin celastcigare tte [email or web address] Information not available 10/23/2023 What Was The Date Of Your Most Recent Tobacco Screening? 10/23/2023 [email or web address] Information not available 10/22/2023 What Is Your Current Pack Years? 30ormorepack years [email or web address] Information not available 10/23/2023 How Much Tobacco Do You Smoke? No [email or web address] Information not available 10/23/2023 Has Tobacco Cessation Counseling Been Provided? Yes [email or web address] Information not available 10/22/2023 On What Date Was Tobacco Cessation Counseling Provided? 10/23/2023 [email or web address] Information not available 10/22/2023 Sex: Male Functional [...] Recorded Time Tdap 07/25/2008 completed Not Available [facility] 06:05:01 Td(adult) unspecified formulation 10/25/2018 completed Not Available [facility] 01/13/2023 06:05:01 zoster recombinant 03/17/2021 completed Not Available [facility] 01/13/2023 06:05:01 zoster recombinant 09/30/2019 completed Not Available [facility] 01/13/2023 06:05:01 influenza, unspecified formulation 01/05/2009 completed Not Available [facility] 01/13/2023 06:05:01 influenza, unspecified formulation 02/08/2006 completed Not Available [facility] 01/13/2023 06:05:02 influenza, unspecified formulation 02/20/2008 completed Not Available [facility] 01/13/2023 06:05:02 Past Encounters Encounter ID Performer Location Encounter Start Date Encounter Closed Date Diagnosis/Indication Diagnosis SNOMED-CT Code [id number] TONE EVANGELISTA, [address] [address] 06/26/2023 10:00:17 06/26/2023 10:55:45 Acute right otitis media [id number] SIERRA BOOTH, [address] [address] 10/23/2023 07:15:58 10/23/2023 08:15:37 Adult health examination 106519599 Gastroesop hageal reflux disease without esophagitis 787770175 Hyperlipidemia 02450428 Shoulder joint pain 2679 86700 Obesity 358972571 Low back pain 764988007 Hearing problem 24308285 4 Health Concerns Section Related Observation LastModified by Organization Detai ls LastModified Time None Recorded Concern Status LastModified by Organization Details LastModified Time None Recorded Advance Directives Directive None Recorded Payers Encounter Date Sequence Insurance Name Policy Number Policy Verduzco Covered Member ID Verduzco Member ID Guarantor Name 06/26/2023 1 [facility] [place] [id number] Kai Mittal [id number] Kai Mittal 10/23/2023 1 [facility] [place] [id number] Kai Mittal [id number] Kai Mittal Notes Date Note Type Note Provider Name and Address Organization Details Recorded Time 06/26/2023 text/html HPI Notes: 53 yr old man here for Complaints of Dizziness/disequil ibrium, over the past 2 weeks intermittent it can occur when he sitting watching TV, or in the car, can be associated with tinnitus, mild nausea no vomiting. Reports under increased stress more recently. He has noticed that the afternoon light shining into the house is bothering his eyes he has a an appointment with optometry today. The episodes of dizziness last anywhere from 30 seconds to 1 minute. He does have a history of loud noise exposure for many years without wearing ear protection? 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 Reports drinks 3-7 bottles of water a day, does not skip meals. No fever or chills, no chest pain shortness of breath no weight loss. No recent respiratory infection, denies seasonal allergies. No alcohol or illicit drug use. SCOTTY TALBOT [address], [place], [address], [facility]. 06/27/2023 09:43:14 10/23/2023 text/html HPI Notes: Transfer of care from TONE Shah APRN, here to check in, get med refills, discuss hearing issues, low back pain. Overdue for AWE. lipids 03/21/2022: qqoid=861, HDL=43. ZGM=907, PK=160, CV10 = 11.6% last A1c 03/17/2021 = 5.5 TSH normal 03/18/2019 BMP wn03/18/2019 No Mg SCOTTY ABREU- [address], [place], [address], [facility], [facility]. 10/23/2023 08:54:59
--- OUTSIDE RECORDS SUMMARY | 2023-10-23 20:04 | XMS_ITS | Encounter Summary ---
Author Organization [facility] Address [address] [place] [address] Care Team Providers Care Prompt Care Rn Name Role Phone Unknown, Provider Primary Care Provider [phone] Encounter Details Date Type Department Care Team (Late st Contact Info) Description 12/28/2016 Results Only [facility] [phone] Flor Kingsley PA [address] [place] [address] Social History Tobacco Use Types Packs/Day Years Used Date Smoking Tobacco: Never Assessed Sex and Gender Information Value Date Recorded Sex Assigned at Not on file Gender Identity Not on file Sexual Orientation Not on file documented as of this encounter Plan of Treatment Not on file documented as of this encounter Procedures Procedure Name Priority Date/Time Associated Diagnosis Comments SURGICAL PATHOLOGY Routine 12/28/2016 17 :45 EDT documented in this encounter Results * SURGICAL PATHOLOGY (12/28/2016 17:45 EDT) Pathology Report: SURGICAL PATHOLOGY REPORT Reports generated via electronic interface contain original data; however they are lacking the format of the original report. Caution should be taken when reading/interpret ing unformatted reports. Name: ? KAI SON ? Accession #: ? [id number] ? : ? 1970 (Age: 46) ??M ? Collect Date: ? 12/28/2016 ? Location: ? [facility] ? Receive Date: ? 12/29/2016 ? Provider: FLOR PASCUAL Copy to: ? Final Pathologic Diagnosis: SKIN OF ARM, LEFT UPPER, SHAVE BIOPSY: - Seborrheic keratosis, pigmented. Microscopic Description: The stratum corneum is thickened by laminated orthohyperkeratos is. ??The epidermis is hyperplastic with papillomatosis and acanthosis. ??The keratinocytes have a basaloid appearance with round regular nuclei. ??There is an increased amount of melanin pigment along the basal zone. ??(Dr. Llanes)/[facility] Document reviewed and electronically signed by: RINA LLANES MD Report ??Date: 12/30/2016 17:08 By the signature above, the attending physician certifies that he/she has personally conducted a gross and/or microscopic examination of the described specimens and rendered or confirmed the above diagnosis. Specimen(s) Received: Left upper arm shave biopsy Clinical History: Changing skin lesion Gross Description: ? Received in formalin labelled with proper patient identification (initials M, E) and L upper arm is a shave biopsy of leary-burger skin (0.7 x 0.7 x 0.1 cm). The margin is inked blue. Trisected and submitted in 1. Mimolly Jacinto 12/30/2016 8:41 AM six complete End of Report [facility] 12/28/2016 17:4 5 EDT 12/29/2016 17:45 EDT Flor PASCUAL PATHOLOGY ORDERA BLES [facility] [address] [place] [address] documented in this encounter Visit Diagnoses Not on filedocumented in this encounter Care Teams Prompt Care Rn Relationship Specialty Start Date End Date Unknown, Provider, PCP - General 03/21/16 documented as of this encounter
--- OUTSIDE RECORDS SUMMARY | 2023-10-23 20:04 | XMS_ITS | Encounter Summary ---
Author Organization [facility] Address [address] [place] [address] Care Team Providers Care Mannequin Decorator Name Role Phone Unavailable Primary Care Provider Unavailabl e Encounter Details Date Type Department Care Team (Late st Contact Info) Description 10/17/2003 Results Only [facility] [address] [place] [address] Rashid Hooks MD [address] [place] [address] [place] [address] Social History Tobacco Use Types Packs/Day Years Used Date Smoking Tobacco: Never Assessed Sex and Gender Information Value Date Recorded Sex Assigned at Not on file Gender Identity Not on file Sexual Orientation Not on file documented as of this encounter Plan of Treatment Not on file documented as of this encounter Procedures Procedure Name Priority Date/Time Associated Diagnosis Comments SURGICAL PATHOLOGY Routine 10/17/2003 0:00 EDT documented in this encounter Results * SURGICAL PATHOLOGY (10/17/2003 0:00 EDT) Pathology Report: SURGICAL PATHOLOGY REPORT Reports generated via electronic interface contain original data; however they are lacking the format of the original report. Caution should be taken when reading/interpreti ng unformatted reports. Name: ? KAI SON ? Accession #: ? [id number] ? : ? 1970 (Age: 33) ??M ? Collect Date: ? 10/17/2003 ? Location: ? [facility] ? Receive Date: ? 10/20/2003 ? Provider: RASHID HOOKS MD Copy to: ADRIAN LUJAN FINGER GRIP MACHINE OPERATOR ? Final Pathologic Diagnosis: A. ?Heel, right, soft tissue, excision: 1. ?Fat necrosis. B. ?Arm, right, upper, soft tissue, excision: 1. ?Mature adipose tissue consistent with lipoma. Document reviewed and electronically signed by: Tyrell Plascencia MD Report ??Date: 10/22/2003 15:06 By the signature above, the attending physician certifies that he/she has personally conducted a gross and/or microscopic examination of the described specimens and rendered or confirmed the above diagnosis. Specimen(s) Received: A. ?Mass R heel excisional bx B. ?Mass R upper arm excisional bx Clinical History: ? Mass (granuloma/lipoma) R heel, lipoma R upper arm Gross Description: ? Received in formalin labelled Son and mass right heel is a 3.1 x 1.2 x 1.2 cm portion of lobulated adipose tissue which is inked and sectioned to reveal leary-white fibrous tissue intermixed with lobulated adipose tissue. ??No areas of hemorrhage are identified. ??Marketing Sales Consultant sections are submitted as (A). Received in formalin labelled Son and mass right upper arm is a 5.5 x 4.5 x 1.5 cm portion of lobulated adipose tissue encapsulated by a translucent membrane which is inked and sectioned to reveal leary-yellow homogeneous cut surfaces. ??No areas of softening or hemorrhagic foci are identified. Marketing Sales Consultant sections are submitted as (B1) and (B2). ??(Janet Hoang)/[facility] ?? End of Report [facility] 10/17/2003 10/20/2003 15: 11 EDT Rashid Hooks MD PATHOLOGY ORDERABLES Performing Organization Address City/State/[facility] Co de Phone Number [facility] [address] [place] [address] documented in this encounter Visit Diagnoses Not on filedocumented in this encounter
--- OUTSIDE RECORDS SUMMARY | 2023-10-23 20:04 | XMS_ITS | Encounter Summary ---
Author Organization [facility] Address [address] [place] [address] Care Team Providers Care Button Attaching Machine Operator Name Role Phone NewportYuli iqbal Kristi PIERCE Primary Care Provider [phone] Encounter Details Date Type Department Care Team (Late st Contact Info) Description 03/17/2016 Results Only [facility] [phone] Ambrocio Garber MD [address] [facility] [address] [place] [address] Social History Tobacco Use Types Packs/Day Years Used Date Smoking Tobacco: Never Assessed Sex and Gender Information Value Date Recorded Sex Assigned at Not on file Gender Identity Not on file Sexual Orientation Not on file documented as of this encounter Plan of Treatment Not on file documented as of this encounter Procedures Procedure Name Priority Date/Time Associated Diagnosis Comments SURGICAL PATHOLOGY Routine 03/17/2016 18 :35 EST documented in this encounter Results * SURGICAL PATHOLOGY (03/17/2016 18:35 EST) Pathology Report: SURGICAL PATHOLOGY REPORT Reports generated via electronic interface contain original data; however they are lacking the format of the original report. Caution should be taken when reading/interpret ing unformatted reports. Name: ? KAI SON ? Accession #: ? [id number] ? : ? 1970 (Age: 45) ??M ? Collect Date: ? 03/17/2016 ? Location: ? [facility] ? Receive Date: ? 03/18/2016 ? Provider: MAURA GARBER MD Copy to: ? Final Pathologic Diagnosis: A. SMALL BOWEL, SECOND PORTION OF DUODENUM, BIOPSY: - ??Mild peptic duodenitis. B. STOMACH, ANTRUM AND BODY, BIOPSY: - ??Antral and transitional mucosa with mild reactive gastropathy. - ??No evidence of Helicobacter pylori on H&E. C. ESOPHAGUS, DISTAL, BIOPSY: - ??Squamous and adjoining cardia type mucosa with reflux esophagitis. - ??No intestinal metaplasia or dysplasia identified. Document reviewed and electronically signed by: DAVE PARKER MD Report ??Date: 03/23/2016 18:38 By the signature above, the attending physician certifies that he/she has personally conducted a gross and/or microscopic examination of the described specimens and rendered or confirmed the above diagnosis. Specimen(s) Received: A. ??Second portion duodenum bx B. ??Antrum and body bx C. ??Distal esophagus bx Clinical History: GERD, family history colon polyps; clinical diagnosis code: ??Z83.71, K21.9 Gross Description: A. ?Received in formalin labelled with proper patient identification (initials M, E) and 2nd portion duodenum are two pink-leary tissues (0.3 x 0.2 x 0.2 cm and 0.4 x 0.2 x 0.1 cm). Entirely submitted in A1. B. ?Received in formalin labelled with proper patient identification (initials M, E) and antrum and body are three pink-leary tissues (0.3 x 0.2 x 0.1 cm, 0.6 x 0.1 x 0.1 cm and 0.5 x 0.2 x 0.2 cm). Entirely submitted in B1. C. ?Received in formalin labelled with proper patient identification (initials M, E) and distal esophagus are two pink-leary tissues (0.4 x 0.2 x 0.2 cm and 0.5 x 0.2 x 0.2 cm). Entirely submitted in C1. Dr. Cruz 03/19/2016 10:25 AM End of Report [facility] 03/17/2016 18:3 5 EST 03/18/2016 18:35 EST Ambrocio Garber MD PATHOLOGY ORDERABLES [facility] [address] [place] [address] documented in this encounter Visit Diagnoses Not on filedocumented in this encounter Care Teams Button Attaching Machine Operator Relationship Specialty Start Date End Date Yuli Faria, [facility] [address] [place] [address] PCP - General 01/25/15 03/20/16 documented as of this encounter
--- OUTSIDE RECORDS SUMMARY | 2023-10-23 20:04 | XMS_ITS | Encounter Summary ---
Author Organization [facility] Address [address] [place] [address] Care Team Providers Care Geopolitics Teacher Name Role Phone Unknown, Provider Primary Care Provider + [phone] Encounter Details Date Type Department Care Team (Late st Contact Info) Description 03/17/2021 Lab Requisition [facility] Pathology & Laboratory Medicine - [facility] [address] [place] [address] Outr Resulting Lab, Provider Social History Tobacco Use Types Packs/Day Years Used Date Smoking Tobacco: Never Assessed Sex and Gender Information Value Date Recorded Sex Assigned at Not on file Gender Identity Not on file Sexual Orientation Not on file documented as of this encounter Plan of Treatment Not on file documented as of this encounter Procedures Procedure Name Priority Date/Time Associated Diagnosis Comments CCP ANTIBODIES Routine 03/17/2021 8:15 EST LYME AB Routine 03/17/2021 8:15 EST RHEUMATOID FACTOR Routine 03/17/2021 8:1 5 EST ANTI NUCLEAR AB (SREE), IFA Routine 03/17/2021 8:15 EST documented in this encounter Results * LYME AB (03/17/2021 8:15 EST) Lyme Ab Negative Negative 03/18/2021 11:24 EST [facility] Blood VENOUS BLOOD / Unknown 03/17/2021 8:15 EST 03/17/2021 21:29 EST Provider Outr Resulting Lab IMMUNOLOGY A ND SEROLOGY ORDERABLES Performing Organization Address City/[facility]/ZIP Co de Phone Number [facility] [address] [place] [address] * RHEUMATOID FACTOR (03/17/2021 8:15 EST) Pathologist [facility] Rheumatoid Factor <8.6 <12.0 IU/mL 03/17/2021 21:54 EST [facility] Blood VENOUS BLOOD / Unknown 03/17/2021 8:15 EST 03/17/2021 21:29 EST Provider Outr Resulting Lab CHEMISTRY & BLOOD GAS ORDERABLES Performing Organization Address [facility] Co de Phone Number [facility] [address] [place] [address] * ANTI NUCLEAR AB (SREE), IFA (03/17/2021 8:15 EST) Pathologist [facility] SREE Interpretation Negative Negative 2021 15:09 EST [facility] Comment:No titer performed, SREE Screen is negative. Blood VENOUS BLOOD / Unknown 03/17/2021 8:15 EST 03/17/2021 21:29 EST Narrative [facility] - 03/18/2021 15:09 EST Results were obtained with the [employer]OVA NOVA Lite HEp-2 SREE Kit by indirect immunofluorescence. Provider Outr Resulting Lab IMMUNOLOGY A ND SEROLOGY ORDERABLES Performing Organization Address [facility] Co de Phone Number [facility] [address] [place] [phone] * CCP ANTIBODIES (03/17/2021 8:15 EST) Pathologist [facility] CCP Antibodies <2.5 <5.0 U/mL 03/18/2021 9:19 EST [facility] Blood VENOUS BLOOD / Unknown 03/17/2021 8:15 EST 03/17/2021 21:29 EST Provider Outr Resulting Lab IMMUNOLOGY A ND SEROLOGY ORDERABLES Performing Organization Address City/[facility]/ZIP Co de Phone Number [facility] [address] [place] [phone] documented in this encounter Visit Diagnoses Not on filedocumented in this encounter Care Teams Geopolitics Teacher Relationship Specialty Start Date End Date Unknown, Provider, PCP - General 03/21/16 documented as of this encounter
[2023-10-23 21:05] LABS: Hemoglobin A1C 5.5 % (<5.7)
[2023-10-23 21:15] LABS: ALT 46 U/L (16-63); AST 31 U/L (15-37); Albumin 3.6 g/dL (3.4-5.0); Alkaline Phosphatase 81 U/L (46-116); Anion Gap 6.5 mmol/L (3-11); BUN 10 mg/dL (7-18); Bilirubin, Total 0.32 mg/dL (0.2-1.0); CO2 28.5 mmol/L (21.0-32.0); CREATININE 1.1 mg/dL (0.70-1.30); Calcium 8.7 mg/dL (8.5-10.1); Calculated LDL 167 mg/dL (<100); Chloride 104 mmol/L (98-107); Cholesterol 228 mg/dL (<200); Estimated GFR 79.77 (mL/min/1.73m2); Glucose 106 mg/dL (74-106); HDL Cholesterol 38 mg/dL (40-60); Magnesium 1.9 mg/dL (1.8-2.4); Potassium 4.3 mmol/L (3.5-5.1); Sodium 139 mmol/L (136-145); Total Protein 6.7 g/dL (6.4-8.2); Triglyceride 115 mg/dL (<150)
== END 2023-10-23 19:55 | disposition home or self-care (01) ==
LOC: NCHCN 19:54
PROVIDERS: PCP Nurse Practitioner Family; Visit Provider Nurse Practitioner Family
DX: K21.9 Gastro-esophageal reflux disease without esophagitis (principal); E78.5 Hyperlipidemia, unspecified; E66.9 Obesity, unspecified; M25.512 Pain in left shoulder
CPT/HCPCS: 80053; 80061; 83036; 83735